=== PATIENT | female | born 1960 | race African-American/Black ===

== ENCOUNTER 2017-08-22 13:51 | Emergency (ER) | payer MEDICARE ==
[2017-08-22 14:10] LABS: Bilirubin Negative (Negative); Blood, Urine Large (Negative); Glucose, Urine (Dipstick) Negative (Negative); Ketone, Urine Negative (Negative); Nitrite Negative (Negative); Protein, Urine (Dipstick) Negative (Neg-Trace); Urobilinogen 0.2 mg/dL (0.2-1.0)
[2017-08-22 14:12] LABS: Bacteria/HPF 1+ HPF (None Seen); Hyaline Casts/LPF 0-3 HYALINE CAST LPF (0-3 Hyaline); Squamous Epithelial 0-3 HPF (0-3)
[2017-08-22 14:22] LABS: Trichomonas/HPF 1+ HPF (None Seen); Yeast-All Forms None Seen HPF (None Seen)
--- NOTE | 2017-08-22 16:14 | CT ---
CT ABDOMEN NONCONTRAST CT PELVIS NONCONTRAST: (urolithiasis protocol) HISTORY: 57-year-old female with right flank pain and dysuria. TECHNIQUE: IV injection of iodinated contrast media: none Oral contrast media: none FINDINGS: Other than for urolithiasis, the lack of IV and oral contrast limits the evaluation. Liver: No contour abnormalities. Spleen: No splenomegaly. Pancreas: No contour abnormalities. Adrenals: No mass. Kidneys: No nephrolithiasis or overt hydronephrosis. Ureters: No calculi. Bladder: No calculi. Abdominal aorta: No aneurysm. Small bowel: No dilation. Colon: No adjacent fat stranding. Appendix: No dilation or adjacent fat stranding. Free air: None. Free fluid: None. IMPRESSION: No acute findings. oniel POS: SHARI
== END 2017-08-22 16:33 | disposition home or self-care (01) ==
LOC: ERS 13:51
DX: A59.01 Trichomonal vulvovaginitis (principal); N39.0 Urinary tract infection, site not specified
CPT/HCPCS: 74176; 81003; 81015

== ENCOUNTER 2017-09-16 08:00 | Outpatient (CLI) | payer MEDICARE | END 2017-09-16 08:01 | disposition home or self-care (01) | LOC: BICCT 08:00 | DX: R93.0 Abnormal findings on diagnostic imaging of skull and head, not elsewhere classified (principal) | CPT/HCPCS: 70450 ==

== ENCOUNTER 2019-03-08 12:43 | Outpatient (CLI) | payer MEDICARE ==
[~2019-03-08 12:43] MED LIST: EPINEPHrine 1 MG/ML AMP ONE; Gadobenate Dimeglumine 529 MG/1 ML (20ML VIAL) ONE; Iopamidol 300 61% 50 ML VIAL FS ONE; Lidocaine 1% PF 10 ML AMP ONE
== END 2019-03-08 12:44 | disposition home or self-care (01) ==
LOC: RAD 12:43
PROVIDERS: ATTEND Student in an Organized Health Care Education/Training Program
DX: Z53.9 Procedure and treatment not carried out, unspecified reason (principal)
CPT/HCPCS: A9577; J0171; J2001; J7050; Q9967

== ENCOUNTER 2019-08-11 13:49 | Outpatient (CLI) | payer MEDICARE ==
--- NOTE | 2019-08-11 15:20 | BD ---
BONE DENSITOMETRY USING DEXA: HISTORY: Post menopausal screening for osteoporosis. FINDINGS: LUMBAR SPINE BMD (g/cm2) T-SCORE Z-SCORE L1 1.063 0.7 2.0 L2 0.990 -0.3 1.1 L3 1.049 -0.3 1.2 L4 1.061 0.0 1.6 TOTAL 1.043 0.0 1.5 BMD (g/cm2) T-SCORE Z-SCORE NECK 0.952 0.9 2.3 TOTAL 1.016 0.6 1.6 IMPRESSION: Normal bone mineral density. POS: SHARI
--- NOTE | 2019-08-11 16:21 | MMO ---
Bilateral MAMMO Bilat Screen [facility]. CLINICAL HISTORY: Patient is 59 years old and is seen for screening. The patient has the following family history of breast cancer: maternal aunt, malignant (generic). The patient has no personal history of cancer. VIEWS: The views performed were: bilateral craniocaudal with tomosynthesis and bilateral mediolateral oblique with tomosynthesis. FILMS COMPARED: The present examination has been compared to prior imaging studies performed at 12/17/2014 and 04/26/2018. This study has been interpreted with the assistance of computer-aided detection. MAMMOGRAM FINDINGS: There are scattered fibroglandular densities. There is a stable intramammary lymph node seen in the left breast. There are no suspicious masses, suspicious calcifications, or new areas of architectural distortion. IMPRESSION: THERE IS NO MAMMOGRAPHIC EVIDENCE OF MALIGNANCY. A ROUTINE FOLLOW-UP MAMMOGRAM IN 1 YEAR IS RECOMMENDED. THE RESULTS OF THIS EXAM WERE SENT TO THE PATIENT. ACR BI-RADS Category 2 - Benign finding MAMMOGRAPHY NOTE: 1. A negative mammogram report should not delay a biopsy if a dominant of clinically suspicious mass is present. 2. Approximately 10% to 15% of breast cancers are not detected by mammography. 3. Adenosis and dense breasts may obscure an underlying neoplasm. Reported by: GEGE MONDRAGON MD Electonically Signed: [id number]
== END 2019-08-11 13:50 | disposition home or self-care (01) ==
LOC: BICMAMMO 13:49
PROVIDERS: ATTEND Student in an Organized Health Care Education/Training Program
DX: Z12.31 Encounter for screening mammogram for malignant neoplasm of breast (principal); Z13.820 Encounter for screening for osteoporosis; D47.2 Monoclonal gammopathy; Z80.3 Family history of malignant neoplasm of breast
CPT/HCPCS: 77063; 77067; 77080

== ENCOUNTER 2021-04-29 18:37 | Emergency (ER) | payer MEDICARE | END 2021-04-29 20:52 | disposition home or self-care (01) | LOC: ERS 18:37 | DX: S76.012A Strain of muscle, fascia and tendon of left hip, initial encounter (principal); Z79.899 Other long term (current) drug therapy; I10 Essential (primary) hypertension; E78.5 Hyperlipidemia, unspecified ==

== ENCOUNTER 2022-03-07 17:25 | Emergency (ER) | payer MEDICARE | END 2022-03-07 20:30 | disposition home or self-care (01) | LOC: ERS 17:25 | DX: U07.1 COVID-19 (principal) | CPT/HCPCS: 99283; U0003; U0005 ==

== ENCOUNTER 2022-04-16 16:48 | Emergency (ER) | payer MEDICARE ==
[2022-04-16] MEDS ORDERED: Dexamethasone 4 mg/ml Vial ONE (17:51)
[2022-04-16] MEDS ORDERED: Dexamethasone 4 MG TAB ONE (17:52)
== END 2022-04-16 17:57 | disposition home or self-care (01) ==
LOC: ERS 16:48
DX: B08.4 Enteroviral vesicular stomatitis with exanthem (principal); I10 Essential (primary) hypertension; Z79.899 Other long term (current) drug therapy
CPT/HCPCS: 99282; J1100; J8540

== ENCOUNTER 2023-03-26 02:51 | Emergency (ER) | payer MEDICARE ==
[2023-03-26] MEDS ORDERED: Lidocaine 1% MPF 2 ML VIAL ONE (03:06)
== END 2023-03-26 03:54 | disposition home or self-care (01) ==
LOC: ERS 02:51
DX: T16.1XXA Foreign body in right ear, initial encounter (principal); I10 Essential (primary) hypertension; Z79.899 Other long term (current) drug therapy; X58.XXXA Exposure to other specified factors, initial encounter
CPT/HCPCS: 69200

== ENCOUNTER 2023-10-05 08:04 | Outpatient (CLI) | payer MEDICARE | END 2023-10-05 08:05 | disposition home or self-care (01) | LOC: BICMAMMO 08:04 | PROVIDERS: ATTEND Family Medicine | DX: Z12.31 Encounter for screening mammogram for malignant neoplasm of breast (principal); N63.25 Unspecified lump in the left breast, overlapping quadrants; Z80.3 Family history of malignant neoplasm of breast | CPT/HCPCS: 77063; 77067 ==

== ENCOUNTER 2023-10-07 09:50 | Outpatient (CLI) | payer MEDICARE | END 2023-10-07 09:51 | disposition home or self-care (01) | LOC: BICMAMMO 09:50 | PROVIDERS: ATTEND Family Medicine | DX: N63.25 Unspecified lump in the left breast, overlapping quadrants (principal) | CPT/HCPCS: 76642; 77065; G0279 ==